=== PATIENT | male | born 1970 | race Caucasian/White ===

== ENCOUNTER 2016-08-01 23:30 | Emergency (ER) | payer MEDICAID, OTHER ==
[~2016-08-01] VITALS: Ht 177.8 cm; Wt 96.0 kg
[~2016-08-01 23:30] MED LIST: BP MED PO; HYDR-3011 PO; KENC1 TOP; LOVASTATIN PO
[2016-08-01 23:34] VITALS: Ht 177.8 cm; Wt 96.0 kg
[2016-08-02] MEDS ORDERED: AMO500 PO (01:20)
[2016-08-02] MEDS ORDERED: ACET325T33 PO (01:20)
--- NOTE | 2016-08-02 01:25 | ERD ---
ER Documentation Chief Complaint Date/Time DATE: 08/02/16 TIME: 01:22 Chief Complaint left ear pain x 1 day HPI 45-year-old male with a past medical history of hypertension, hyperlipidemia presents to the ED complaining of left ear pain that started 3 hours ago. Reports that radiates down to his neck. States that he has had a dry cough and rhinorrhea. Reports he has been taking Robitussin with slight relief of his cough. Denies any sick contacts. Denies any chest pain, shortness of breath, wheezing, sore throat, abdominal pain, nausea, vomiting, diarrhea, rashes. Denies any dysphagia. ROS All systems reviewed and are negative except as per history of present illness. Medications Home Meds Active Scripts Acetaminophen* (Tylenol*) 325 Mg Tablet, 2 TAB PO Q8 Y for PAIN AND OR ELEVATED TEMP, #20 TAB Prov:PIEDAD GARCIA PA-C 08/02/16 Amoxicillin* (Amoxicillin*) 500 Mg Cap, 500 MG PO TID for 7 Days, CAP Prov:PIEDAD GARCIA PA-C 08/02/16 Hydroxyzine Hcl* (Hydroxyzine Hcl*) 25 Mg Tablet, 25 MG PO Q8H Y for ITCHING, # 30 TAB Prov:TEJ BANKS NP 02/26/16 Triamcinolone Acetonide (Triamcinolone Acetonide) 0.1% - 15 Gm Cream.gm., 1 APPLIC TOP BID, #1 TUB Prov:TEJ BANKS NP 02/26/16 Reported Medications [Lovastatin] No Conflict Check, PO HS 12/12/15 [Bp Med] No Conflict Check, PO for ELEVATED BLOOD PRESSURE 12/12/15 [None] No Conflict Check 06/13/12 Allergies Allergies: Coded Allergies: No Known Allergy (Unverified , 02/26/16) PMhx/Soc History of Surgery: Yes (RT SHOULDER SX, TESTICLE SX) Anesthesia Reaction: No Hx Neurological Disorder: No Hx Respiratory Disorders: No Hx Cardiac Disorders: Yes (HTN, HIGH CHOLESTEROL) Hx Psychiatric Problems: No Hx Miscellaneous Medical Probl: No Hx Alcohol Use: No Hx Substance Use: No Hx Tobacco Use: No (QUIT 20 YRS AGO) Smoking Status: Former smoker Physical Exam Vitals Vital Signs Date Time Temp Pulse Resp B/P Pulse Ox O2 Delivery O2 Flow Rate FiO2 08/01/16 23:34 97.6 93 20 166/98 100 Physical Exam Const: Owl-nhr-bhxmetdgg, well-nourished. In no acute distress. Head: Atraumatic, normocephalic Eyes: Normal Conjunctiva without injection. No purulent discharge. PERRL. EOMI ENT: Normal external ear. No tenderness palpation of the tragus or mastoid. Right ear canal without erythema. Right tympanic membrane pearly bronw without effusion or bulging. Left bulging tympanic membrane with erythema noted. Nasal canal clear with normal turbinates. Moist oropharynx without tonsillar exudates. Non-erythematous pharynx. Uvula midline. No drooling. No trismus. Neck: Full range of motion. No meningismus. No cervical lymphadenopathy. Resp: Clear to auscultation bilaterally. No wheezing, rhonchi, rales, or crackles. No accessory muscle use. No retractions. Cardio: Regular rate and rhythm. No murmurs, rubs or gallops. Abd: Soft, non tender, non distended. Normal bowel sounds. No palpable masses. No rebound tenderness. No guarding. Skin: No petechiae or rashes Back: No midline tenderness. No CVA tenderness. Ext: No cyanosis, or edema. Neur: Awake and alert. Psych: Normal Mood and Affect Results 24 hrs Current Medications Medications (Trade) Dose Ordered Sig/Jimmy Route PRN Reason Start Time Stop Time Status Last Admin Dose Admin Ketorolac Tromethamine (Toradol) 60 mg ONCE STAT IM 08/02/16 02:24 08/02/16 02:25 DC 08/02/16 02:36 Procedures/MDM 45-year-old male with no significant past medical history presents the ED complaining of left ear pain that started earlier today, 3 hours ago. Patient is afebrile and nontoxic-appearing. Patient has normal vital signs. Patient's physical exam is consistent with otitis media. Patient does not have tenderness to palpation of tragus or mastoid. Low suspicion for otitis externa or mastoiditis. Patient's physical exam include lungs which were clear to auscultation and a normal pulse oximetry. Patient is speaking in full sentences. There is a low suspicion for pneumonia, epiglottitis, croup, viral/ strep pharyngitis, sinusitis, peritonsillar abscess, retropharyngeal abscess, meningitis, Justin's angina, sepsis, acute abdomen or other emergent conditions. Discharge medications: Amoxicillin, Tylenol Follow up with primary care physician in 1-2 days. Instructed patient to return to the ED sooner for any worsening symptoms. Patient's questions were answered. Patient understood and agreed with discharge plan. Patient discharged stable. Departure Diagnosis: Primary Impression: Left ear pain Condition: Stable Patient Instructions: Otitis Media, Abx Tx (Adult) Referrals: [facility] YOU HAVE RECEIVED A MEDICAL SCREENING EXAM AND THE RESULTS INDICATE THAT YOU DO NOT HAVE A CONDITION THAT REQUIRES URGENT TREATMENT IN THE EMERGENCY DEPARTMENT. FURTHER EVALUATION AND TREATMENT OF YOUR CONDITION CAN WAIT UNTIL YOU ARE SEEN IN YOUR DOCTORS OFFICE WITHIN THE NEXT 1-2 DAYS. IT IS YOUR RESPONSIBILITY TO MAKE AN APPOINTMENT FOR FOLOW-UP CARE. IF YOU HAVE A PRIMARY DOCTOR --you should call your primary doctor and schedule an appointment IF YOU DO NOT HAVE A PRIMARY DOCTOR YOU CAN CALL OUR PHYSICIAN REFERRAL HOTLINE AT IF YOU CAN NOT AFFORD TO SEE A PHYSICIAN YOU CAN CHOSE FROM THE FOLLOWING [facility] [address] [facility]. [facility] [address] [facility]. [facility] [place] [address] [facility] [facility] [address] [facility]. [facility] [address] [facility]. [facility]. [address] [facility]. [facility] YOU HAVE RECEIVED A MEDICAL SCREENING EXAM AND THE RESULTS INDICATE THAT YOU DO NOT HAVE A CONDITION THAT REQUIRES URGENT TREATMENT IN THE EMERGENCY DEPARTMENT. FURTHER EVALUATION AND TREATMENT OF YOUR CONDITION CAN WAIT UNTIL YOU ARE SEEN IN YOUR DOCTORS OFFICE WITHIN THE NEXT 1-2 DAYS. IT IS YOUR RESPONSIBILITY TO MAKE AN APPOINTMENT FOR FOLOW-UP CARE. IF YOU HAVE A PRIMARY DOCTOR --you should call your primary doctor and schedule and appointment IF YOU DO NOT HAVE A PRIMARY DOCTOR YOU CAN CALL OUR PHYSICIAN REFERRAL HOTLINE AT . IF YOU CAN NOT AFFORD TO SEE A PHYSICIAN YOU CAN CHOSE FROM THE FOLLOWING [facility] INSTITUTIONS: [facility] [address] [place] [address] [facility] [address] [place] [address] [facility] [address] [place] [address] [facility] URGENT CARE/SPECIALTIES Additional Instructions: Call your primary care doctor for an appointment during the next 2-3 days.See the doctor sooner or return here if your condition worsens before your appointment time. PIEDAD GARCIA PA-C Aug 02, 2016 01:25
[2016-08-02] MEDS ORDERED: KETOROLAC 60 MG INJ IM STA (02:24)
== END 2016-08-02 02:40 | disposition home or self-care (01) ==
LOC: FTE 23:30
DX: H92.02 Otalgia, left ear (principal); I10 Essential (primary) hypertension; Z87.891 Personal history of nicotine dependence
CPT/HCPCS: J1885; Z7502; 99283

== ENCOUNTER 2017-01-12 22:45 | Emergency (ER) | payer OTHER ==
[~2017-01-12] VITALS: Ht 170.2 cm; Wt 108.5 kg
[~2017-01-12 22:45] MED LIST changes: +ACET325T33 PO; +AMO500 PO; -KENC1 TOP; +TRIA15CR55 TOP
[2017-01-12 22:48] VITALS: Ht 170.2 cm; Wt 108.5 kg
[2017-01-12] MEDS ORDERED: ACETAMINOPHEN 325 MG TAB PO ONE (23:30)
[2017-01-12] MEDS ORDERED: IBUPROFEN 600 MG TAB PO ONE (23:30)
[2017-01-12] MEDS ORDERED: AZIT250T94 PO (23:33)
[2017-01-12] MEDS ORDERED: CETI10CA PO (23:33)
[2017-01-12] MEDS ORDERED: NPH10OT RIGHT EAR (23:33)
[2017-01-12] MEDS ORDERED: ALBU8.5H3 INH (23:33)
[2017-01-12] MEDS ORDERED: GUAI120S26 PO (23:33)
[2017-01-12] MEDS ORDERED: IBUP-1542 PO (23:33)
[2017-01-12 23:42] VITALS: BP 151/88; PULSE 74; RESP 20; TEMP 99.1
--- NOTE | 2017-01-12 23:54 | ERD ---
ER Documentation Chief Complaint Date/Time DATE: 01/12/17 TIME: 23:48 Chief Complaint right earache, cough, chest congestion , dry nose HPI 46-year-old male presents to emergency department for possible complaints. Patient has been having dry cough, does not cough up blood. Patient has been having runny nose nasal congestion clear nasal discharge. Patient also started to have right ear pain today, felt swollen ear, denies any ear discharge. Patient denies any trauma in the ear. Patient denies any problems with hearing. ROS All systems reviewed and are negative except as per history of present illness. Medications Home Meds Active Scripts Ibuprofen* (Motrin*) 600 Mg Tab, 600 MG PO Q6H Y for PAIN AND OR ELEVATED TEMP, #30 TAB Prov:TJE BANKS NP 01/12/17 Wpmcafnbrnd-T-Dfecshgmzz Hb* (Guaifenesin* DM Syrup) 120 Ml Syrup, 10 ML PO Q4H Y for COUGH, #120 ML Prov:TEJ BANKS NP 01/12/17 Albuterol Sulfate* (Proair HFA*) 8.5 Gm Hfa.aer.ad, 2 PUFF INH Q4H Y for WHEEZING AND SOB, #1 INHALER Prov:TEJ BANKS NP 01/12/17 Azithromycin* (Zithromax*) 250 Mg Tablet, 250 MG PO .ZPACK DIRECTED, #6 TAB TAKE 500 MG (2 TABS) THE FIRST DAY THEN 250 MG (1 TAB) DAYS 2-5 Prov:TEJ BANKS NP 01/12/17 Cetirizine Hcl* (Zyrtec*) 10 Mg Capsule, 10 MG PO DAILY, #30 TAB.CHEW Prov:TEJ BANKS NP 01/12/17 Neomycin/Polymyxin/Hydrocort* (Cortisporin* Otic) 10 Ml Susp, 4 DROP RIGHT EAR QID for 7 Days, EA Prov:TEJ BANKS NP 01/12/17 Acetaminophen* (Tylenol*) 325 Mg Tablet, 2 TAB PO Q8 Y for PAIN AND OR ELEVATED TEMP, #20 TAB Prov:PIEDAD GARCIA PA-C 08/02/16 Amoxicillin* (Amoxicillin*) 500 Mg Cap, 500 MG PO TID for 7 Days, CAP Prov:PIEDAD GARCIA PA-C 08/02/16 Hydroxyzine Hcl* (Hydroxyzine Hcl*) 25 Mg Tablet, 25 MG PO Q8H Y for ITCHING, # 30 TAB Prov:TEJ BANKS NP 02/26/16 Triamcinolone Acetonide (Triamcinolone Acetonide) 0.1% - 15 Gm Cream.gm., 1 APPLIC TOP BID, #1 TUB Prov:TEJ BANKS NP 02/26/16 Reported Medications [Lovastatin] No Conflict Check, PO HS 12/12/15 [Bp Med] No Conflict Check, PO for ELEVATED BLOOD PRESSURE 12/12/15 [None] No Conflict Check 06/13/12 Allergies Allergies: Coded Allergies: No Known Allergy (Unverified , 02/26/16) PMhx/Soc History of Surgery: Yes (RT SHOULDER SX, TESTICLE SX) Anesthesia Reaction: No Hx Neurological Disorder: No Hx Respiratory Disorders: No Hx Cardiac Disorders: Yes (HTN, HIGH CHOLESTEROL) Hx Psychiatric Problems: No Hx Miscellaneous Medical Probl: No Hx Alcohol Use: No Hx Substance Use: No Hx Tobacco Use: No (QUIT 20 YRS AGO) Smoking Status: Never smoker FmHx Family History: No coronary disease, No diabetes, No other Physical Exam Vitals Vital Signs Date Time Temp Pulse Resp B/P Pulse Ox O2 Delivery O2 Flow Rate FiO2 01/12/17 23:42 99.1 74 20 151/88 99 Room Air 01/12/17 22:48 100.0 91 20 164/90 99 Physical Exam GENERAL: The patient is well developed and appropriate for usual state of health, in no apparent distress. HEENT: Atraumatic. Ears: Normal tympanic membrane, no erythema or bulging.Right ear canal erythematous and swollen. Left ear canal normal.:. Nose: normal nasal turbinates, no erythema or swelling. Normal nasal discharge. Throat: oropharynx clear. No tonsillar swelling or tonsillar exudates. No lymphadenopathy. CHEST: Clear to auscultation bilaterally. There are no rales, wheezes or rhonchi. HEART: Regular rate and rhythm. No murmurs, clicks, rubs or gallops. No S3 or S4. ABDOMEN: Soft, nontender and nondistended. Good bowel sounds. No rebound or guarding. No gross peritonitis. No gross organomegaly or masses. No Reynoso sign or McBurney point tenderness. BACK: No midline or flank tenderness. EXTREMITIES: Equal pulses bilaterally. There is no peripheral clubbing, cyanosis or edema. No focal swelling or erythema. Full range of motion. Grossly neurovascularly intact. NEURO: Alert and oriented. Cranial nerves 2-12 intact. Motor strength in all 4 extremities with 5/5 strength. Sensation grossly intact. Normal speech and gait. SKIN: There is no apparent rash or petechia. The skin is warm and dry. HEMATOLOGIC AND LYMPHATIC: There is no evidence of excessive bruising or lymphedema. No gross cervical, axillary, or inguinal lymphadenopathy. Results 24 hrs Current Medications Medications (Trade) Dose Ordered Sig/Jimmy Route PRN Reason Start Time Stop Time Status Last Admin Dose Admin Ibuprofen (Motrin) 600 mg ONCE ONCE PO 01/12/17 23:30 01/12/17 23:31 DC 01/12/17 23:35 Acetaminophen (Tylenol Tab) 650 mg ONCE ONCE PO 01/12/17 23:30 01/12/17 23:31 DC 01/12/17 23:35 Patient was given medication for pain here in emergency department, after treatment, patient verbalized feeling much better. Patient's pain is improved. Procedures/MDM Medical Decision Making: Patient symptoms are most likely consistent with acute bronchitis, which most likely from atypical infection origin. There is low suspicion for Pneumonia at this time since patients lungs sounds are clear, patient O2 saturation is normal and patient doesnt show any respiratory distress. Patients chest xray doesnt show infiltrates or any other cardiopulmonary emergencies at this time. There is low suspicion for other cardiopulmonary emergencies at this time such as CHF, Pulmonary Embolism, Pneumothorax, Aortic Aneurysm or any other cardiopulmonary emergencies at this time. There is low suspicion for sepsis. Patient appears well and is hemodynamically stable. Fever is controlled with medicines. Patient symptoms of right ear pain is likely consistent with otitis externa, no symptoms of otitis media or mastoiditis. No foreign body. No TM perforation. No symptoms of any malignant otitis. No symptoms of any cellulitis. Disposition: Home. Stable. Disposition: Home. Condition: Stable Prescriptions: Azithromycin, Albuterol, Guaifenasin DM, Zyrtec Corticosporin otic drops, ibuprofen, Instructions: Patient is advised to take medications as prescribed. Patient is advised to rest. Patient advised to increase fluid intake, do humidifier at home and if possible, do salt water gargles. Patient is advised that if symptoms are worse, shortness of breath, uncontrolled fever, stridor, vomiting, worst signs and symptoms to return to emergency department immediately. Otherwise, patient is advised to follow up with primary doctor in 5-7 days. Departure Diagnosis: Primary Impression: Acute bronchitis Bronchitis organism: unspecified organism Qualified Code: J20.9 - Acute bronchitis, unspecified organism Additional Impression: Otitis externa Otitis externa type: unspecified type Chronicity: acute Laterality: right Qualified Code: H60.501 - Acute otitis externa of right ear, unspecified type Condition: Stable Patient Instructions: Bronchitis, Antiobiotic Treatment (Adult), External Ear Infection (Adult) TEJ BANKS NP Jan 12, 2017 23:54
== END 2017-01-12 23:46 | disposition home or self-care (01) ==
LOC: FTE 22:45
DX: J20.9 Acute bronchitis, unspecified (principal); H60.501 Unspecified acute noninfective otitis externa, right ear; I10 Essential (primary) hypertension; Z87.891 Personal history of nicotine dependence
CPT/HCPCS: Z7502; Z7610; 99284